=== PATIENT | female | born 1990 | race Caucasian/White ===

== ENCOUNTER 2022-08-09 18:47 | Emergency (ER) | payer MEDICAID ==
[~2022-08-09] VITALS: Ht 167.6 cm; Wt 58.1 kg
--- NOTE | 2022-08-09 19:48 | NUR ---
DR [place] into eval patient.
[2022-08-09] MEDS ORDERED: CIPR5DRO RIGHTEYE (19:56)
--- NOTE | 2022-08-09 20:00 | NUR ---
Patient discharged to home in stable condition. Written and verbal after care instructions given. Patient verbalizes understanding of instructions. Stressed follow up or return to ER for worsening s/s. Patient walked out with steady gait.
[2022-08-09 20:21] VITALS: BP 118/72
== END 2022-08-09 20:10 | disposition home or self-care (01) ==
LOC: ER 18:47
DX: H10.9 Unspecified conjunctivitis (principal); Z79.2 Long term (current) use of antibiotics
CPT/HCPCS: A4663